=== PATIENT | male | born 1980 | race Two or more races ===

== ENCOUNTER → 2019-08-02 | Emergency (ER) | payer SELFPAY ==
[~2019-08-02] VITALS: Ht 175.3 cm; Wt 131.5 kg
[~2019-08-02] MED LIST: cloNIDine HCL 0.1 MG TAB PO ONE
[2019-08-02 22:11] LABS: Urine Bacteria NONE SEEN /hpf (None Seen); Urine Blood Negative /uL (Negative); Urine Mucus FEW (None Seen); Urine Specific Gravity 1.005 (1.001-1.035); Urine WBC 2 /hpf (0 - 3)
[2019-08-02 22:29] VITALS: BP 141/100
== END | disposition home or self-care (01) ==
LOC: EDUNIT# 18:09 → EDBD 18:16 → ER 18:18
DX: F41.9 Anxiety disorder, unspecified (principal); R42 Dizziness and giddiness; R51 Headache; I10 Essential (primary) hypertension
CPT/HCPCS: 81001

== ENCOUNTER 2020-01-25 18:09 | Emergency (ER) | payer MEDICAID ==
[~2020-01-25] VITALS: Ht 175.3 cm; Wt 136.1 kg
[2020-01-25 18:25] VITALS: BP 134/102
== END 2020-01-25 21:41 | disposition home or self-care (01) ==
LOC: ER 18:09
DX: U07.1 COVID-19 (principal); I10 Essential (primary) hypertension; F17.210 Nicotine dependence, cigarettes, uncomplicated
CPT/HCPCS: 36415; 71045; 87426

== ENCOUNTER 2020-11-08 22:22 | Emergency (ER) | payer MEDICAID ==
[~2020-11-08] VITALS: Ht 175.3 cm; Wt 145.1 kg
[2020-11-09] MEDS ORDERED: methylPREDNISolone SOD SUCC 125 MG/2 ML VL IM ONE (01:45)
[2020-11-09] MEDS ORDERED: KETOROLAC TROMETH 60MG/2ML VIAL IM ONE (01:45)
[2020-11-09 02:36] VITALS: BP 144/112
== END 2020-11-09 02:50 | disposition home or self-care (01) ==
LOC: ER 22:26
DX: M48.56XA Collapsed vertebra, not elsewhere classified, lumbar region, initial encounter for fracture (principal); M54.16 Radiculopathy, lumbar region; M54.41 Lumbago with sciatica, right side; M48.061 Spinal stenosis, lumbar region without neurogenic claudication; E66.9 Obesity, unspecified; F17.210 Nicotine dependence, cigarettes, uncomplicated; Z68.42 Body mass index [BMI] 45.0-49.9, adult
CPT/HCPCS: 72100; 96372; 99284; J1885; J2930

== ENCOUNTER 2020-11-15 15:53 | Emergency (ER) | payer MEDICAID ==
[~2020-11-15] VITALS: Ht 175.3 cm; Wt 145.1 kg
[2020-11-15 18:08] VITALS: BP 135/103
[2020-11-15] MEDS ORDERED: KETOROLAC TROMETH 60MG/2ML VIAL IM ONE (19:15)
[2020-11-15] MEDS ORDERED: methylPREDNISolone SOD SUCC 125 MG/2 ML VL IM ONE (19:15)
== END 2020-11-15 19:49 | disposition home or self-care (01) ==
LOC: ER 15:53
DX: S22.078A Other fracture of T9-T10 vertebra, initial encounter for closed fracture (principal); S22.088A Other fracture of T11-T12 vertebra, initial encounter for closed fracture; M54.41 Lumbago with sciatica, right side; M54.16 Radiculopathy, lumbar region; E66.9 Obesity, unspecified; F17.210 Nicotine dependence, cigarettes, uncomplicated; Z68.42 Body mass index [BMI] 45.0-49.9, adult; X58.XXXA Exposure to other specified factors, initial encounter; Y93.89 Activity, other specified; Y92.89 Other specified places as the place of occurrence of the external cause; Y99.8 Other external cause status
CPT/HCPCS: 72100; 73502; 96372; 99284; J1885; J2930

== ENCOUNTER 2021-02-09 23:17 | Emergency (ER) | payer MEDICAID ==
[~2021-02-09] VITALS: Ht 175.3 cm; Wt 140.6 kg
[2021-02-10 03:04] VITALS: BP 143/96
[2021-02-10] MEDS ORDERED: methylPREDNISolone SOD SUCC 125 MG/2 ML VL IM ONE (03:15)
[2021-02-10] MEDS ORDERED: KETOROLAC TROMETH 60MG/2ML VIAL IM ONE (03:15)
== END 2021-02-10 04:12 | disposition home or self-care (01) ==
LOC: ER 23:17
DX: S83.91XA Sprain of unspecified site of right knee, initial encounter (principal); E66.9 Obesity, unspecified; Z68.42 Body mass index [BMI] 45.0-49.9, adult; F17.210 Nicotine dependence, cigarettes, uncomplicated; F41.9 Anxiety disorder, unspecified; I10 Essential (primary) hypertension; X50.9XXA Other and unspecified overexertion or strenuous movements or postures, initial encounter; Y93.01 Activity, walking, marching and hiking; Y92.89 Other specified places as the place of occurrence of the external cause; Y99.8 Other external cause status
CPT/HCPCS: 73562; 96372; 99284; J1885; J2930

== ENCOUNTER 2023-01-22 19:08 | Emergency (ER) | payer MEDICAID ==
[~2023-01-22] VITALS: Ht 175.3 cm; Wt 150.0 kg
[2023-01-22 20:46] LABS: COVID19 ANTIGEN SOFIA FIA POSITIVE (NEGATIVE)
[2023-01-22 20:47] LABS: Rapid Influenza A Negative (Negative); Rapid Influenza B Negative (Negative)
[2023-01-22] MEDS ORDERED: AZIT-43 PO (22:17)
[2023-01-22] MEDS ORDERED: ACET500T58 PO (22:17)
[2023-01-22] MEDS ORDERED: PRED20TA2 PO (22:17)
[2023-01-23 05:45] VITALS: BP 137/90; PULSE 94; RESP 20; TEMP 98.3; O2SAT 98
== END 2023-01-22 23:24 | disposition home or self-care (01) ==
LOC: ER 19:08
DX: U07.1 COVID-19 (principal); J06.9 Acute upper respiratory infection, unspecified; I10 Essential (primary) hypertension; E11.9 Type 2 diabetes mellitus without complications; K21.9 Gastro-esophageal reflux disease without esophagitis
CPT/HCPCS: 36415; 87426; 87804

== ENCOUNTER 2024-04-05 07:05 | Emergency (ER) | payer MEDICAID ==
[~2024-04-05] VITALS: Ht 175.3 cm; Wt 147.5 kg
[~2024-04-05 07:05] MED LIST changes: +ACET500T58 PO; +AZIT-43 PO; +PRED20TA2 PO; -cloNIDine HCL 0.1 MG TAB PO ONE
[2024-04-05 07:57] VITALS: BP 115/91; PULSE 92; RESP 17; TEMP 98; O2SAT 97
--- NOTE | 2024-04-05 07:59 | DVH ---
EXAM: XR Left Shoulder Complete, 2 or More Views CLINICAL INDICATION: PAIN, NO INJURY TECHNIQUE: Two or more views of the left shoulder. COMPARISON: None FINDINGS: BONES/JOINTS: Unremarkable. No acute fracture. No dislocation. SOFT TISSUES: Unremarkable. OTHER FINDINGS: . None. . IMPRESSION: No acute fracture.
--- NOTE | 2024-04-05 08:19 | ED.PDOC ---
Musculoskeletal HPI Comments A 44 YEAR OLD MALE PRESENTS TO THE ED WITH COMPLAINT OF LEFT SHOULDER PAIN. PATIENT STATES HE HAS BEEN EXPERIENCING LEFT SHOULDER PAIN OFF AND ON FOR THE PAST 1 MONTH. 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 PATIENT REPORTS HE HAS HAD A FEW EPISODES OF DIARRHEA OVER THE LAST 2 DAYS. PATIENT DENIES FEVER, CHILLS, SHORTNESS OF BREATH, CHEST PAIN, ABDOMINAL PAIN, NAUSEA, VOMITING, HEADACHE, OR OTHER COMPLAINTS. NO OTHER SYMPTOMS OR MODIFYING FACTORS AT THIS TIME. PATIENT IS ALERT, ORIENTED X 4, AND HAS STEADY GAIT. Chief Complaint: Upper Extremity Time Seen by MD: 07:29 Primary Care Provider: TIMI Reviewed Notes: Nurses Notes, Medications, Allergies Allergies: Coded Allergies: NO KNOWN ALLERGIES (Unverified , 08/27/12) Home Meds Active Scripts Loperamide HCl (Imodium A-D) 2 Mg Cap, 2 MG PO TID, #24 CAP Prov:EDY ROBBINS 04/05/24 Acetaminophen (Tylenol 8 Hour Arthritis) 650 Mg Tab, 650 MG PO TID, #30 TAB Prov:EDY ROBBINS 04/05/24 Methocarbamol (Methocarbamol) 750 Mg Tab, 750 MG PO BID, #20 TAB Prov:EDY ROBBINS 04/05/24 Acetaminophen (Acetaminophen) 500 Mg Tab, 500 MG PO QIDP, #30 TAB 0 Refills Prov:LEI BARRAZA 01/22/23 Prednisone (Prednisone) 20 Mg Tab, 20 MG PO BID for 5 Days, #10 TAB 0 Refills Prov:LEI BARRAZA 01/22/23 Azithromycin (Azithromycin) 250 Mg Tab, 250 MG PO DAILY MDD 500 for 5 Days, #6 TAB 0 Refills 2 TABLETS ORALLY ON DAY ONE, THEN 1 TABLET ORALLY DAILY FOR 4 DAYS Prov:LEI BARRAZA 01/22/23 Information Source: Patient Mode of Arrival: Ambulatory Location: Left Extremity Location: Shoulder Timing: Days Prehospital treatment: None Severity: Moderate Able to Move Extremity: Yes Bear Weight: Fully Pain: Moderate Mechanism: No Trauma, Spontaneous Circumstances: Spontaneous Onset of Symptoms: Spontaneous, After Exercise Symptoms: Pain DVT Risk Factors: NONE Last Tetanus: Unknown Associated signs and symptoms: Shoulder pain Past Medical History PAST MEDICAL HISTORY: Anxiety, DM, GERD, HTN Surgical History: Denies all surgeries Family History Family History: Reviewed,noncontributory to illness, Family hx of DM Social History Smoker: Other Alcohol: Denies ETOH Use Drugs: Marijuana Lives In: Home Constitutional: denies: chills, diaphoresis, fatigue, fever, malaise, sweats, weakness, others EENTM: denies: blurred vision, double vision, ear bleeding, ear discharge, ear drainage, ear pain, ear ringing, eye pain, eye redness, hearing loss, mouth pain, mouth swelling, nasal discharge, nose bleeding, nose congestion, nose pain, photophobia, tearing, throat pain, throat swelling, voice changes, others Respiratory: denies: cough, hemoptysis, orthopnea, SOB at rest, shortness of breath, SOB with excertion, stridor, wheezing, others Cardiovascular: denies: chest pain, dizzy spells, diaphoresis, Dyspnea on exertion, edema, irregular heart beat, left arm pain, lightheadedness, palpitations, PND, syncope, others Gastrointestinal: reports: diarrhea, nausea; denies: abdomen distended, abdominal pain, blood streaked bowels, constipated, dysphagia, difficulty swallowing, hematemesis, melena, poor appetite, poor fluid intake, rectal bleeding, rectal pain, others Genitourinary: denies: burning, dysuria, flank pain, frequency, hematuria, incontinence, penile discharge, penile sore, pain, testicle pain, testicle swelling, urgency, others Neurological: denies: dizziness, fainting, headache, left sided numbness, left sided weakness, numbness, paresthesia, pre-existing deficit, right sided numbness, right sided weakness, seizure, speech problems, tingling, tremors, weakness, others Musculoskeletal: reports: others (LEFT SHOULDER PAIN); denies: back pain, gout, joint pain, joint swelling, muscle pain, muscle stiffness, neck pain Integumetry: denies: bruises, change in color, change in hair/nails, dryness, laceration, lesions, lumps, rash, wounds, others Allergic/Immunocompromised: denies: Difficulty Healing, Frequent Infections, Hives, Itching, others Hematologic/Lymphatic: denies: anemia, blood clots, easy bleeding, easy bruising, swollen glands, others Endocrine: denies: excessive hunger, excessive sweating, excessive thirst, excessive urination, flushing, intolerance to cold, intolerance to heat, unexplained weight gain, unexplained weight loss, others Psychiatric: denies: anxiety, bipolar disorder, depression, hopeless, panic disorder, schizophrenia, sleepless, suicidal, others All Other Systems: Reviewed and Negative Physical Exam General Appearance: Mild Distress, Obese HEENT: Normal ENT Inspection, PERRL/EOMI, Pharynx Normal, TMs Normal Neck: Full Range of Motion, Non-Tender, Normal, Normal Inspection Respiratory: Chest Non-Tender, Lungs Clear, No Accessory Muscle Use, No Respiratory Distress, Normal Breath Sounds Cardiovascular: No Edema, No JVD, No Murmur, No Gallop, Normal Peripheral Pulses, Regular Rate/Rhythm Breast Exam: Deferred Gastrointestinal: No Organomegaly, Non Tender, No Pulsatile Mass, Normal Bowel Sounds, Soft Genitalia: Deferred Pelvic: Deferred Rectal: Deferred Extremities: Decreased range of motion, No calf tenderness, Normal capillary refill, No pedal edema, Tender (LEFT SHOULDER, NO BONY TENDERNESS, SWELLING AND DEFORMITY. 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 Was a procedure done?: No Differential Diagnosis EXT Differential Diagnosis: Sprain, DJD, Strain, Arthritis, Bursitis, Other (VIRAL SYNDROME ) X-Ray, Labs, Meds, VS Vital Signs Date Time Temp Pulse Resp B/P (MAP) Pulse Ox O2 Delivery O2 Flow Rate FiO2 04/05/24 07:57 92 17 97 Room Air 04/05/24 07:57 98.0 92 17 115/91 (99) 97 98.0 04/05/24 07:27 98.0 92 17 115/91 (99) 97 Current Medications Medications (Trade) Dose Ordered Sig/Ebenezer Route Start Time Stop Time Status Last Admin Ketorolac Tromethamine (Toradol Injection) 60 mg ONCE ONCE IM 04/05/24 08:30 04/05/24 08:31 DC 04/05/24 08:26 EXAM: XR Left Shoulder Complete, 2 or More Views CLINICAL INDICATION: PAIN, NO INJURY TECHNIQUE: Two or more views of the left shoulder. COMPARISON: None FINDINGS: BONES/JOINTS: Unremarkable. No acute fracture. No dislocation. SOFT TISSUES: Unremarkable. OTHER FINDINGS: . None. . IMPRESSION: No acute fracture. ATED BY: CHRISTOPHER LILLY MD DICTATED DATE/TIME: 04/05/24755 SIGNED BY: CHRISTOPHER LILLY MD SIGNED DATE/TIME: 04/05/24755 CC: X-Ray, Labs, Meds, VS Comment EXTERNAL MEDICAL RECORDS REVIEWED: [NONE] INDEPENDENT HISTORIANS: [NONE] SOCIAL DETERMINANTS OF HEALTH: [NONE] LABS ORDERED: NONE REVIEWED AND INTERPRETED RESULTS: NONE IMAGING ORDERED: XR SHOULDER LT TREATMENTS ORDERED: TORADOL 60 MG IM PROCEDURES PERFORMED: NONE CRITICAL CARE TIME: NONE I HAVE DISCUSSED THE PATIENT WITH THE ATTENDING PHYSICIAN DR. MAXWELL AND HE AGREES WITH THE PATIENT'S PLAN OF CARE AND DISPOSITION. BASED ON HISTORY OF PRESENT ILLNESS, AND PHYSICAL EXAM, PATIENT WILL BE DISCHARGED HOME. SHARED DECISION MAKING: PATIENT INSTRUCTED TO FOLLOW UP WITH PRIMARY CARE PROVIDER IN 1-2 DAYS FOR RE-EVALUATION OF SYMPTOMS. PATIENT VERBALIZES UNDERSTANDING TO RETURN TO ED FOR NEW OR WORSENING SYMPTOMS OR IF FOLLOW UP WITH PCP CANNOT BE OBTAINED. PATIENT FEELS COMFORTABLE GOING HOME AT THIS TIME. ALL QUESTIONS ADDRESSED AT TIME OF DISCHARGE. Images Reviewed?: Images reviewed and evaluated by me Time of 1ST Reevaluation: 08:40 Reevaluation 1ST: Improved Patient Education/Counseling: Diagnosis, Treatment, Need For Follow Up Family Education/Counseling: Diagnosis, Treatment, Need For Follow Up Medical Screening: No EMC Exist At This Time Departure 1 Departure Time of Disposition: 08:40 Impression: Primary Impression: Tendinitis of left shoulder Additional Impression: Viral syndrome Disposition: HOME / SELF CARE / HOMELESS Condition: Stable Additional Instructions: FOLLOW-UP WITH PCP IN 1 TO 2 DAYS. TAKE MEDICATIONS PRESCRIBED. RETURN TO ED FOR ANY NEW OR WORSENING SYMPTOMS. e-Prescriptions Loperamide HCl (Imodium A-D) 2 Mg Cap 2 MG PO TID, #24 CAP Prov: EDY ROBBINS 04/05/24 Acetaminophen (Tylenol 8 Hour Arthritis) 650 Mg Tab 650 MG PO TID, #30 TAB Prov: EDY ROBBINS 04/05/24 Methocarbamol (Methocarbamol) 750 Mg Tab 750 MG PO BID, #20 TAB Prov: EDY ROBBINS 04/05/24 Discharged With: Self Critical Care Note Critical Care Time?: No Stability Stability form required: No I personally scribed for EDY ROBBINS ([email or web address]) on 04/05/24 at 08:19. Electronically submitted by Jorge Rea ([email or web address]). EDY ROBBINS Apr 05, 2024 08:19
[2024-04-05] MEDS ORDERED: ACET-1080 PO (08:26)
[2024-04-05] MEDS: KETOROLAC TROMETH 60MG/2ML VIAL IM ONE (08:26)
[2024-04-05] MEDS ORDERED: METH-1182 PO (08:26)
[2024-04-05] MEDS ORDERED: LOPE7.5C PO (08:26)
== END 2024-04-05 08:36 | disposition home or self-care (01) ==
LOC: ER 07:05
DX: B34.9 Viral infection, unspecified (principal); M75.92 Shoulder lesion, unspecified, left shoulder; I10 Essential (primary) hypertension; E11.9 Type 2 diabetes mellitus without complications; K21.9 Gastro-esophageal reflux disease without esophagitis; F41.9 Anxiety disorder, unspecified; F17.200 Nicotine dependence, unspecified, uncomplicated; F15.90 Other stimulant use, unspecified, uncomplicated; Z79.52 Long term (current) use of systemic steroids; Z79.899 Other long term (current) drug therapy
CPT/HCPCS: 73030; 96372; 99283; J1885

== ENCOUNTER 2024-06-07 18:31 | Emergency (ER) | payer MEDICAID ==
[~2024-06-07] VITALS: Ht 165.1 cm; Wt 148.4 kg
[~2024-06-07 18:31] MED LIST changes: +ACET-1080 PO; +LOPE7.5C PO; +METH-1182 PO
[2024-06-07 18:40] VITALS: TEMP 98.6
--- NOTE | 2024-06-07 18:56 | ECG ---
[facility] Test Date: 2024-06-07 Test Time: 18:54:43 Pat Name: BARI BOYLE Department: ER Room: Gender: M Data Abstractor: JUAN M : 1980 Requested By: KIM ZAMARRIPA Order Number: [id number] Reading MD: Jeremi Cuellar Measurements Intervals [place] Rate: 86 P: 31 NV: 144 QRS: -10 QRSD: 96 T: 6 QT: 343 QTc: 411 Interpretive Statements Sinus rhythm Low voltage, precordial leads RSR' in V1 or V2, right VCD or RVH Left ventricular hypertrophy Anterior Q waves, possibly due to LVH Electronically Signed On 06-08-2024 15:12:04 PDT by Jeremi Cuellar Please click the below link to view image of tracing.
[2024-06-07 19:04] LABS: Urine Bacteria None Seen /hpf (None Seen)
[2024-06-07 19:14] LABS: Urine Blood Negative /uL (Negative); Urine Clarity Clear (Clear); Urine Color Colorless (Yellow); Urine Protein, UAD Negative (Negative); Urine Specific Gravity 1.006 (1.001-1.035); Urine Squamous Epithelial Cell None Seen /hpf (<5); Urine Urobilinogen Normal (Negative); Urine WBC 1 /HPF (0-3); Urine pH 6.5 (5.0-9.0)
--- NOTE | 2024-06-07 19:18 | ED.PDOC ---
HPI Comments 44y M who presents to the ED for chief complaint of chest pain. - pt states for the past 2 days he has been having intermittent palpitations and when he gets the palpitation he feels some type of the headache. - pt states he has also been having intermittent left sided chest wall pain, substernal, "pricking" sensation, rating the pain 8/10, that happened in few occasions today. - pt has been having associated increase urinary frequency - pt states he took tylenol earlier this AM and states he took ibuprofen 6 hours later and came to the ED due to persistence of his symptoms - pt otherwise states he was hospitalized at for urinary infection in the past. Past medical history: HTN , HLD, Pre -DM, past surgical history: denies Medications: lisinopril, HCTZ, metformin Allergies: denies Social history: denies ETOH, denies tobacco use, endorses drug use(marijuana) HPI: Poor Historian. REVIEW OF SYSTEMS: CONSTITUTIONAL: Denies acute: fever, diaphoresis, chills, HEAD: Denies acute: photophobia Eyes: Denies acute: Double vision, vision loss, eye pain, eye discharge. EARS: Denies acute: tinnitus, hearing loss, ear discharge, ear pain, THROAT: Denies acute: sore throat, swelling, difficulty swallowing , pain with swallowing, change in voice. NECK: Denies acute: neck pain, neck swelling, stiff neck. HEART: Denies acute : LUNGS: Denies acute: SOB, wheezing, cough, hemoptysis ABDOMEN: Denies acute: abdominal pain, Nausea, Vomiting, diarrhea, melena , hematemesis, hematochezia SKIN: Denies acute: rash, redness, lesions, itchiness. EXTREMITIES: Denies acute: calf pain, numbness, tingling, weakness, denies pain in extremity. Denies acute: Low back pain. Neuro: Denies acute: focal neurological deficit, motor or sensory focal neurological deficit, tremors, seizure like activity, confusion, dizziness, change in mental status, loss of bowel or bladder function, cauda equina like symptoms. : Denies acute: dysuria, hematuria, flank pain, PSYCH: Denies acute: hallucination, suicidal ideation, homicidal ideation. PHYSICAL EXAM: General: -----no---acute distress, awake and alert. Head: normocephalic, atraumatic. Neck: supple, trachea is midline, no swelling. Throat: Normal phonation. Eyes:, no erythema, no purulent discharge, no proptosis, no icterus. Heart: regular rate, regular rhythm, no significant murmur appreciated. Lungs: no apparent respiratory distress, Able to speak in full sentences. No wheezing, no rhonchi, no crackles. No stridors Clear to auscultation bilaterally. Abdomen: non tender to palpation, non distended, soft, no guarding, no rebound, + bowel sounds. Morbidly obese Neuro: Awake, Alert, oriented to name, self, situation, follows commands GCS=15. Speech is normal. Skin: no petechia, no purpura, no cyanosis, non-pale, not jaundice. Lower extremities: --1/4 bl - Pitting edema no deformity, no focal swelling, no calf TTP. Makes eye contact. moves all four extremities. Face: no apparent facial droop. Ambulating in the ED independently. ED COURSE: Chief Complaint: Chest Pain Time Seen by MD: 19:17 Primary Care Provider: MAYURI Enrique Notes: Nurses Notes, Medications, Allergies Allergies: Coded Allergies: NO KNOWN ALLERGIES (Unverified , 08/27/12) Home Meds Active Scripts Loperamide HCl (Imodium A-D) 2 Mg Cap, 2 MG PO TID, #24 CAP Prov:EDY ROBBINS 04/05/24 Acetaminophen (Tylenol 8 Hour Arthritis) 650 Mg Tab, 650 MG PO TID, #30 TAB Prov:EDY ROBBINS 04/05/24 Methocarbamol (Methocarbamol) 750 Mg Tab, 750 MG PO BID, #20 TAB Prov:EDY ROBBINS 04/05/24 Acetaminophen (Acetaminophen) 500 Mg Tab, 500 MG PO QIDP, #30 TAB 0 Refills Prov:LEI BARRAZA 01/22/23 Prednisone (Prednisone) 20 Mg Tab, 20 MG PO BID for 5 Days, #10 TAB 0 Refills Prov:LEI BARRAZA 01/22/23 Azithromycin (Azithromycin) 250 Mg Tab, 250 MG PO DAILY MDD 500 for 5 Days, #6 TAB 0 Refills 2 TABLETS ORALLY ON DAY ONE, THEN 1 TABLET ORALLY DAILY FOR 4 DAYS Prov:LEI BARRAZA 01/22/23 Information Source: Patient Mode of Arrival: Ambulatory Brought in by: self Past Medical History PAST MEDICAL HISTORY: Anxiety, DM, GERD, HTN Surgical History: Denies all surgeries Family History Family History: Reviewed,noncontributory to illness, Family hx of DM Social History Smoker: Other Alcohol: Denies ETOH Use Drugs: Marijuana Lives In: Home Was a procedure done? Was a procedure done?: No CP Differential Dx Differential Diagnosis: N/A Differential Diagnosis: Other (Ddx include but not limitied to gastritis, musculoskeletal pain, radiculopathy, atypical chest pain, dissection, aneurysm, ACS, unstable angina, hiatal hernia, GERD, anxiety, costochondritis, PE, pneumothroax, neoplasm, cardiac ischemia, drug abuse, anemia.) X-Ray, Labs, Meds, VS Vital Signs Date Time Temp Pulse Resp B/P (MAP) Pulse Ox O2 Delivery O2 Flow Rate FiO2 06/07/24 18:54 86 06/07/24 18:40 98.6 88 18 129/78 (95) 96 98.6 Lab Test 06/07/24 19:48 06/07/24 19:00 06/07/24 18:57 06/07/24 18:50 Range/Units Troponin I High Sensitivity 6 7 </=54 ng/L White Blood Count 14.1 H 4.4-10.8 10^3/uL Red Blood Count 5.44 4.5-5.90 10^6/uL Hemoglobin 16.1 13.5-17.5 g/dL Hematocrit 47.5 41.0-53.0 % Mean Corpuscular Volume 87.3 80.0-100.0 fL Mean Corpuscular Hemoglobin 29.7 28.0-32.0 pg Mean Corpuscular Hemoglobin Concent 33.9 32.0-36.0 g/dL Red Cell Distribution Width 13.8 11.8-14.3 % Platelet Count 247 140-450 10^3/uL Mean Platelet Volume 9.7 6.9-10.8 fL Neutrophils (%) (Auto) 71.2 37.0-80.0 % Lymphocytes (%) (Auto) 22.1 10.0-50.0 % Monocytes (%) (Auto) 5.4 0.0-12.0 % Eosinophils (%) (Auto) 1.0 0.0-7.0 % Basophils (%) (Auto) 0.3 0.0-2.0 % Neutrophils # (Auto) 10.0 H 1.6-8.6 10 ^3/uL Lymphocytes # (Auto) 3.1 0.4-5.4 10 ^3/uL Monocytes # (Auto) 0.8 0-1.3 10 ^3/uL Eosinophils # (Auto) 0.1 0-0.8 10 ^3/uL Basophils # (Auto) 0 0-0.2 10 ^3/uL Nucleated Red Blood Cells 0.0 % D-Dimer, Quantitative < 0.19 0.0-0.49 mg/L FEU Sodium Level 137 136-145 mmol/L Potassium Level 3.7 3.5-5.1 mmol/L Chloride Level 102 98-107 mmol/L Carbon Dioxide Level 27 20-31 mmol/L Anion Gap 8 5-15 Blood Urea Nitrogen 13 9-23 mg/dL Creatinine 0.82 0.700-1.30 mg/dL Glomerular Filtration Rate Calc 112 >90 mL/min BUN/Creatinine Ratio 15.9 10.0-20.0 Serum Glucose 118 H 74-106 mg/dL Lactic Acid Level 0.9 0.4-2.0 mmol/L Calcium Level 10.2 8.7-10.4 mg/dL Magnesium Level 2.1 1.6-2.6 mg/dL Total Bilirubin 0.4 0.2-1.0 mg/dL Aspartate Amino Transferase (AST) 23 13-40 U/L Alanine Aminotransferase (ALT) 52 H 7-40 U/L Alkaline Phosphatase 101 46-116 U/L B-Type Natriuretic Peptide 15.36 0-100 pg/mL Total Protein 8.7 H 5.7-8.2 g/dL Albumin 5.0 H 3.2-4.8 g/dL Urine Color Colorless Yellow Urine Clarity Clear Clear Urine pH 6.5 5.0-9.0 Urine Specific [place] 1.006 1.001-1.035 Urine Protein Negative Negative Urine Ketones Negative Negative Urine Blood Negative Negative /uL Urine Nitrite Negative Negative Urine Bilirubin Negative Negative Urine Urobilinogen Normal Negative mg/dL Urine Leukocyte Esterase Negative Negative /uL Urine RBC 1 0 - 3 /hpf Urine Microscopic WBC 1 0-3 /HPF Urine Squamous Epithelial Cells None seen <5 /hpf Urine Bacteria None seen None Seen /hpf Urine Glucose Normal Normal mg/dL Urine Opiates Screen Neg NEGATIVE Urine Fentanyl Screen Neg NEGATIVE Urine Barbiturates Screen Neg NEGATIVE Urine Phencyclidine Screen Neg NEGATIVE Urine Amphetamines Screen Neg NEGATIVE Urine Benzodiazepines Screen Neg NEGATIVE Urine Cocaine Screen Neg NEGATIVE Urine Cannabinoids Screen Pos NEGATIVE POC Glucose 125 H 70-106 mg/dl [facility] [id number] [place] [id number] Ph: [phone] DIAGNOSTIC IMAGING Diagnostic Imaging Report : [id number] Signed PATIENT: BARI BOYLE I ACCT: [id number] UNIT: [id number] : 1980 LOC: ER ROOM / BED: / AGE / SEX: 44 / M ADM STATUS: REG ER SERVICE 23 ORDERING PHYSICIAN: MABEL GALICIA DO PROCEDURE(s): CXRP - CHEST PORTABLE REASON: cp palpitation ORDER NUMBER(s): [id number], ACCESSION NUMBER(s): [id number] CHEST RADIOGRAPH Indication: cp palpitation Technique: Single frontal view of the chest was obtained Comparison: CHEST PORTABLE on DOS: 01/25/20 FINDINGS: Lines and Tubes: None Lungs: No focal consolidation. Elevated right hemidiaphragm. Pleura: No effusion. No pneumothorax. Cardiomediastinal contours: Unremarkable Bones: No acute osseous abnormality. IMPRESSION: No acute cardiopulmonary disease. ATED BY: RUTH MAYEN DO DICTATED DATE/TIME: 06/07/241957 SIGNED BY: RUTH MAYEN DO SIGNED DATE/TIME: 06/07/241957 CC: Time of 1ST Reevaluation: 21:13 Reevaluation 1ST: Improved Patient Education/Counseling: Diagnosis, Treatment Family Education/Counseling: No Family Present Comments Patient presented with the above HPI.---cardiac---workup was initiated. patient was found with the above mentioned diagnosis. the following medications were ordered: please refer to order lists of meds and tests obtained by myself Dr. Galicia. Patient ED course and VS have been stabilized. Patient has been reassessed in the ED and remained in a stable condition. Pertinent incidental findings were discussed with the patient and/or family. Patient/family voices understanding and is agreeable with plan. Patient has been observed in the ED adequate length of time to insure improvement/stability. Escalation of care considered: Consideration of escalation to observation or admission Patient's heart score is low. He has no active chest pain. Patient was DISCHARGED home in a stable condition. All the reports of any imaging studies that were ordered by myself were reviewed by myself. Departure 1 Departure Time of Disposition: 21:12 Impression: Primary Impression: Chest pain Disposition: HOME / SELF CARE / HOMELESS Condition: Stable Additional Instructions: Additional discharge instructions: You MUST follow-up with your primary care/family doctor in 1 to 2 days. If you are unable to see your primary care/family doctor, please return to our emergency room for re-assessment and re-evaluation in 1 to 2 days. Return to the emergency room here in our facility or to the nearest ER [facility] if your symptoms change or worsen. CONSULTATIONS: you MUST Follow-up for consultation as soon as possible with: -cardiology in 1-2 days. Please call for appointment. You MUST call the consultants office yourself to make an appointment. You may need to arrange that through your insurance and/or your primary/family doctor. If you are unable to see the systems management consultant in 1 to 2 days, you must return to our emergency room (or any other ER of your choice) for re-assessment and re- evaluation. Adequate fluid hydration. Monitor blood pressure at home at least 3 times a day. Below is a copy of your radiological report for follow up: Critical Care Note Critical Care Time?: No Heart Score Heart Score: Heart Score Response (Comments) Value History Slightly Suspicious 0 EKG Normal 0 Age <45 0 Risk Factors >3 or Hx ASHD 2 Troponin Normal limit 0 Total 2 I personally scribed for MABEL GALICIA DO ([email or web address]) on 06/07/24 at 19:18. Electronically submitted by Shira Coppola ([email or web address]). I personally scribed for MABEL GALICIA DO ([email or web address]) on 06/07/24 at 20:04. Electronically submitted by Shira Coppola ([email or web address]). MABEL GALICIA DO Jun 07, 2024 19:18
[2024-06-07 19:23] LABS: Amphetamine Screen, Urine Neg (NEGATIVE); Barbiturate Scree,Urine Neg (NEGATIVE); Benzodiazephine Screen, Urine Neg (NEGATIVE); Cocaine Screen, Urine Neg (NEGATIVE); Opiate Scree,Urine Neg (NEGATIVE)
[2024-06-07 19:24] LABS: Cannabinoid Screen, Urine Pos (NEGATIVE); Phencyclidine Screen, Urine Neg (NEGATIVE)
[2024-06-07 19:31] LABS: Basophils # (auto) 0 10 ^3/uL (0-0.2); Basophils % (auto) 0.3 % (0.0-2.0); Eosinophils # (auto) 0.1 10 ^3/uL (0-0.8); Hematocrit 47.5 % (41.0-53.0); Hemoglobin 16.1 g/dL (13.5-17.5); Lymphocytes # (auto) 3.1 10 ^3/uL (0.4-5.4); Lymphocytes % (auto) 22.1 % (10.0-50.0); Mean Corpuscular Hemoglobin 29.7 pg (28.0-32.0); Mean Corpuscular Hgb Conc. 33.9 g/dL (32.0-36.0); Mean Corpuscular Volume 87.3 fL (80.0-100.0); Monocytes # (auto) 0.8 10 ^3/uL (0-1.3); Monocytes % (auto) 5.4 % (0.0-12.0); Neutrophils % (auto) 71.2 % (37.0-80.0); Platelet Count (auto) 247 10^3/uL (140-450); Red Blood Cells 5.44 10^6/uL (4.5-5.90); Red Cell Distribution Width 13.8 % (11.8-14.3); White Blood Cell 14.1 10^3/uL (4.4-10.8)
[2024-06-07 19:42] LABS: Alkaline Phosphatase 101 U/L (46-116); Calcium 10.2 mg/dL (8.7-10.4); Carbon Dioxide 27 mmol/L (20-31); Chloride 102 mmol/L (98-107); Magnesium 2.1 mg/dL (1.6-2.6); Potassium 3.7 mmol/L (3.5-5.1)
[2024-06-07 19:43] LABS: Anion Gap 8 (5-15); Aspartate Aminotransferase 23 U/L (13-40); BUN/Creatinine Ratio 15.9 (10.0-20.0); Bilirubin, Total 0.4 mg/dL (0.2-1.0); Blood Urea Nitrogen 13 mg/dL (9-23); Sodium 137 mmol/L (136-145)
[2024-06-07 19:45] LABS: Alanine Aminotransferase 52 U/L (7-40); Glucose 118 mg/dL (74-106); Total Protein 8.7 g/dL (5.7-8.2)
--- NOTE | 2024-06-07 20:00 | DVH ---
CHEST RADIOGRAPH Indication: cp palpitation Technique: Single frontal view of the chest was obtained Comparison: CHEST PORTABLE on DOS: 01/25/20 FINDINGS: Lines and Tubes: None Lungs: No focal consolidation. Elevated right hemidiaphragm. Pleura: No effusion. No pneumothorax. Cardiomediastinal contours: Unremarkable Bones: No acute osseous abnormality. IMPRESSION: No acute cardiopulmonary disease.
[2024-06-07 22:04] VITALS: BP 122/82; PULSE 81; RESP 16; O2SAT 97
[2024-06-07] MEDS: ASPirin-EC 325mg tab PO ONE (22:09)
[2024-06-07] MEDS: SODIUM CHLORIDE 0.9% 1,000 ML IV ONE (22:09)
--- NOTE | 2024-06-09 07:31 | ECG ---
[facility] Test Date: 2024-06-07 Test Time: 20:06:53 Pat Name: BARI BOYLE Department: ED Room: Gender: M Health Assessment And Treatment Teacher: FREIDA : 1980 Requested By: KIM ZAMARRIPA Order Number: [id number] Reading MD: Jeremi Cuellar Measurements Intervals [place] Rate: 91 P: 33 [place]: 142 QRS: -14 QRSD: 95 T: 6 QT: 332 QTc: 409 Interpretive Statements Sinus rhythm Low voltage, precordial leads RSR' in V1 or V2, right VCD or RVH Left ventricular hypertrophy Anterior Q waves, possibly due to LVH Baseline wander in lead(s) V3 Electronically Signed On 06-11-2024 14:18:00 PDT by Jeremi Cuellar Please click the below link to view image of tracing.
== END 2024-06-07 22:24 | disposition home or self-care (01) ==
LOC: ER 18:34
DX: R07.89 Other chest pain (principal); R00.2 Palpitations; R51.9 Headache, unspecified; I10 Essential (primary) hypertension; E11.9 Type 2 diabetes mellitus without complications; E78.5 Hyperlipidemia, unspecified; K21.9 Gastro-esophageal reflux disease without esophagitis; R06.02 Shortness of breath; Z79.899 Other long term (current) drug therapy
CPT/HCPCS: 36415; 71045; 80053; 80307; 81001; 82947; 82962; 83605; 83735; 83880; 84484; 85025; 85379; 93005

== ENCOUNTER 2025-02-21 23:53 | Emergency (ER) | payer MEDICAID ==
[~2025-02-21] VITALS: Ht 175.3 cm; Wt 14.1 kg
--- NOTE | 2025-02-22 00:41 | ED.PDOC ---
History of Present Illness HPI Comments 45 y/o M presents with c/c of throat pain, cough, and fever x2 days. Patient also reporting drainage from his umbilical area states had fungal infections in the past. Chief Complaint: Sore Throat Time Seen by MD: 00:12 Primary Care Provider: MAYURI Enrique Notes: Nurses Notes, Medications, Allergies Allergies: Coded Allergies: NO KNOWN ALLERGIES (Unverified , 08/27/12) Home Meds Active Scripts Loperamide HCl (Imodium A-D) 2 Mg Cap, 2 MG PO TID, #24 CAP Prov:EDY ROBBINS 04/05/24 Acetaminophen (Tylenol 8 Hour Arthritis) 650 Mg Tab, 650 MG PO TID, #30 TAB Prov:EDY ROBBINS 04/05/24 Methocarbamol (Methocarbamol) 750 Mg Tab, 750 MG PO BID, #20 TAB Prov:EDY ROBBINS 04/05/24 Acetaminophen (Acetaminophen) 500 Mg Tab, 500 MG PO QIDP, #30 TAB 0 Refills Prov:LEI BARRAZA 01/22/23 Prednisone (Prednisone) 20 Mg Tab, 20 MG PO BID for 5 Days, #10 TAB 0 Refills Prov:LEI BARRAZA 01/22/23 Azithromycin (Azithromycin) 250 Mg Tab, 250 MG PO DAILY MDD 500 for 5 Days, #6 TAB 0 Refills 2 TABLETS ORALLY ON DAY ONE, THEN 1 TABLET ORALLY DAILY FOR 4 DAYS Prov:LEI BARRAZA 01/22/23 Information Source: Patient Mode of Arrival: Ambulatory Severity: Moderate Timing: Days Duration: Since onset Prehospital treatment: None Past Medical History PAST MEDICAL HISTORY: Anxiety, DM, GERD, HTN Surgical History: Denies all surgeries Family History Family History: Reviewed,noncontributory to illness, Family hx of DM Social History Smoker: Other Alcohol: Denies ETOH Use Drugs: Marijuana Lives In: Home All Other Systems: Reviewed and Negative (as per HPI) Physical Exam General Appearance: No Apparent Distress, Normal HEENT: Pharyngeal Erythema, TMs Normal, Tonsillar Exudate Neck: Full Range of Motion, Non-Tender Respiratory: Lungs Clear, No Respiratory Distress, Normal Breath Sounds Cardiovascular: No Edema, No JVD, No Murmur, No Gallop, Normal Peripheral Pulses, Regular Rate/Rhythm Breast Exam: Deferred Gastrointestinal: No Organomegaly, Non Tender, No Pulsatile Mass, Normal Bowel Sounds, Soft Genitalia: Deferred Pelvic: Deferred Rectal: Deferred Extremities: Normal range of motion Musculoskeletal : Apperance: Normal Neurologic: Alert, No Motor Deficits, Normal Affect, Normal Mood, No Sensory Deficits Cerebellar Function: Normal Reflexes: NOT DONE Skin: Dry, Normal Color, Rash (White drainage noted within umbilicus erythema tenderness noted), Warm Lymphatic: No Adenopathy Was a procedure done? Was a procedure done?: No Differential Dx Considerations may include: pharyngitis, tonsillitis, URI, among others X-Ray, Labs, Meds, VS Vital Signs Date Time Temp Pulse Resp B/P (MAP) Pulse Ox O2 Delivery O2 Flow Rate FiO2 02/22/25 00:02 98.5 98 18 119/71 98 98.5 Time of 1ST Reevaluation: 00:12 Reevaluation 1ST: Unchanged Time of 2ND Reevaluation: 01:40 Reevaluation 2ND: Improved Patient Education/Counseling: Diagnosis, Treatment, Need For Follow Up Family Education/Counseling: No Family Present SEPSIS Sepsis Screen Date sepsis recognized/suspect: Feb 22, 2025 Time Sepsis recognized/suspect: 0006 Recent Procedure: No On Antibiotic Therapy: No Respiratory Rate >20: No Heart Rate >90: No Temp<36 C (96.8 F) or >38.3 C: No SBP <90 or MAP <65 mmHG: No New Acute Mental Status Change: No Is the patient on CPAP, BIPAP,: No Vital Signs Date Time Temp Pulse Resp B/P (MAP) Pulse Ox O2 Delivery O2 Flow Rate FiO2 02/22/25 00:02 98.5 98 18 119/71 98 98.5 Departure 1 Departure Time of Disposition: 01:40 Impression: Primary Impression: Acute tonsillitis Qualified Codes: J03.90 - Acute tonsillitis, unspecified Additional Impression: Tinea corporis Disposition: HOME / SELF CARE / HOMELESS Condition: Stable e-Prescriptions Promethazine-Dm (Promethazine Hydrochlorid 6.25-15 mg/5Ml) 1 Maria T Maria T 5 ML PO TID PRN for 7 Days, #100 ML Prov: KIM ZAMARRIPAP 02/22/25 Prednisone (Prednisone) 20 Mg Tab 20 MG PO DAILY@BREAKFAST for 5 Days, #5 MG Prov: KIM ZAMARRIPA [employer] 02/22/25 Azithromycin (Azithromycin) 250 Mg Tab 250 MG PO DAILY MDD 500 for 5 Days, #6 TAB 0 Refills 2 TABLETS ORALLY ON DAY ONE, THEN 1 TABLET ORALLY DAILY FOR 4 DAYS Prov: KIM ZAMARRIPA 02/22/25 Discharged With: Self Critical Care Note Critical Care Time?: No Stability Stability form required: No Heart Score Heart Score: Heart Score Response (Comments) Value History N/A 0 EKG N/A 0 Age N/A 0 Risk Factors N/A 0 Troponin N/A 0 Total 0 I personally scribed for PASHA MALDONADO MD ([email or web address]) on 02/22/25 at 00:41. Electronically submitted by Janes Pederson ([email or web address]). PASHA MALDONADO MD Feb 22, 2025 00:41 KIM ZAMARRIPA Feb 22, 2025 01:30
[2025-02-22] MEDS ORDERED: AZIT-43 PO (01:43)
[2025-02-22] MEDS ORDERED: PROM1SOL2 PO (01:43)
[2025-02-22] MEDS ORDERED: PRED20TA2 PO (01:43)
[2025-02-22 01:46] VITALS: BP 126/83; PULSE 74; RESP 17; TEMP 99.1; O2SAT 98
[2025-02-22] MEDS: KETOROLAC TROMETH 60MG/2ML VIAL IM ONE (02:05)
== END 2025-02-22 02:09 | disposition home or self-care (01) ==
LOC: ER 23:53
DX: J03.90 Acute tonsillitis, unspecified (principal); B35.4 Tinea corporis; F12.90 Cannabis use, unspecified, uncomplicated; F17.200 Nicotine dependence, unspecified, uncomplicated; I10 Essential (primary) hypertension; E11.9 Type 2 diabetes mellitus without complications; F41.9 Anxiety disorder, unspecified; Z79.899 Other long term (current) drug therapy; Z79.52 Long term (current) use of systemic steroids
CPT/HCPCS: 96372; 99283; J1885